=== PATIENT | male | born 2000 | race Caucasian/White ===

== ENCOUNTER 2025-09-16 07:48 | Emergency (ER) | payer SELFPAY ==
[~2025-09-16] VITALS: Ht 180.3 cm; Wt 85.7 kg
[2025-09-16 08:43] VITALS: BP 120/95; TEMP 98.5; O2SAT 100
== END 2025-09-16 08:44 | disposition home or self-care (01) ==
LOC: ER 07:52
DX: S43.005A Unspecified dislocation of left shoulder joint, initial encounter (principal); X50.0XXA Overexertion from strenuous movement or load, initial encounter; Y93.89 Activity, other specified; Y92.69 Other specified industrial and construction area as the place of occurrence of the external cause; Y99.0 Civilian activity done for income or pay
CPT/HCPCS: 73030-TC